=== PATIENT | female | born 1980 | race Caucasian/White ===

== ENCOUNTER → 2018-01-31 | Emergency (ER) | payer OTHER ==
[~2018-01-31] VITALS: Ht 152.4 cm; Wt 52.6 kg
[~2018-01-31] MED LIST: PANADOL EXTRA500 MG
== END | disposition home or self-care (01) ==
LOC: ER 15:47
DX: B34.9 Viral infection, unspecified (principal)

== ENCOUNTER 2018-10-30 11:07 | Emergency (ER) | payer OTHER ==
[~2018-10-30] VITALS: Ht 152.4 cm; Wt 5.4 kg
== END 2018-10-30 13:13 | disposition home or self-care (01) ==
LOC: ER 11:07
DX: J06.9 Acute upper respiratory infection, unspecified (principal)

== ENCOUNTER 2019-01-09 17:40 | Emergency (ER) | payer OTHER ==
[~2019-01-09] VITALS: Ht 152.4 cm; Wt 55.8 kg
== END 2019-01-09 21:28 | disposition home or self-care (01) ==
LOC: ER 17:40
DX: K52.9 Noninfective gastroenteritis and colitis, unspecified (principal)

== ENCOUNTER 2019-05-28 22:53 | Emergency (ER) | payer OTHER ==
[~2019-05-28] VITALS: Ht 152.4 cm; Wt 55.3 kg
[2019-05-29] MEDS ORDERED: MUPIROCIN22 GM TOP ×2 (00:42→00:43)
[2019-05-29] MEDS ORDERED: CECLOR500 MG PO (00:42)
== END 2019-05-29 01:07 ==
LOC: ER 22:53
DX: L08.89 Other specified local infections of the skin and subcutaneous tissue (principal)

== ENCOUNTER 2021-03-10 13:41 | Outpatient (CLI) | payer OTHER ==
[~2021-03-10 13:41] MED LIST changes: +CECLOR500 MG PO; +MUPIROCIN22 GM TOP
== END 2021-03-10 13:53 | disposition home or self-care (01) ==
LOC: RAD 13:41
PROVIDERS: ATTEND Specialist
DX: R07.89 Other chest pain (principal); H25.11 Age-related nuclear cataract, right eye

== ENCOUNTER 2022-06-03 11:24 | Emergency (ER) | payer OTHER ==
[~2022-06-03] VITALS: Ht 152.4 cm; Wt 54.9 kg
[2022-06-03] MEDS ORDERED: ZITHROMAX200 MG PO (13:26)
[2022-06-03] MEDS ORDERED: BENZONATATE200 M1 PO (13:26)
== END 2022-06-03 13:35 | disposition home or self-care (01) ==
LOC: ER 11:24
DX: B34.8 Other viral infections of unspecified site (principal); A49.3 Mycoplasma infection, unspecified site; Z20.828 Contact with and (suspected) exposure to other viral communicable diseases

== ENCOUNTER 2022-06-24 01:16 | Emergency (ER) | payer OTHER ==
[~2022-06-24] VITALS: Ht 152.4 cm; Wt 54.9 kg
[~2022-06-24 01:16] MED LIST changes: +BENZONATATE200 M1 PO; +ZITHROMAX200 MG PO
[2022-06-24] MEDS ORDERED: ZYNCOF 20-400120 ML PO (04:06)
[2022-06-24] MEDS ORDERED: MEDROL8 MG PO (04:06)
== END 2022-06-24 04:10 ==
LOC: ER 01:16
DX: J40 Bronchitis, not specified as acute or chronic (principal); R05.9 Cough, unspecified

== ENCOUNTER 2022-06-25 14:02 | Emergency (ER) | payer OTHER ==
[~2022-06-25] VITALS: Ht 152.4 cm; Wt 54.4 kg
[~2022-06-25 14:02] MED LIST changes: +MEDROL8 MG PO; +ZYNCOF 20-400120 ML PO
== END 2022-06-25 16:05 | disposition home or self-care (01) ==
LOC: ER 14:02
DX: M54.50 Low back pain, unspecified (principal)

== ENCOUNTER 2023-05-21 23:00 | Emergency (ER) | payer OTHER ==
[~2023-05-21] VITALS: Ht 152.4 cm; Wt 57.6 kg
[~2023-05-21 23:00] MED LIST changes: +TUSSI PRES-B L480 ML PO; +ZITHROMAX500 MG PO
== END 2023-05-22 06:38 | disposition home or self-care (01) ==
LOC: ER 23:00
DX: R10.32 Left lower quadrant pain (principal); R11.0 Nausea

== ENCOUNTER 2024-06-12 20:57 | Emergency (ER) | payer OTHER ==
[~2024-06-12] VITALS: Ht 152.4 cm; Wt 62.1 kg
[2024-06-12] MEDS ORDERED: KETOROLAC TROMETHAMINE 60 MG VIAL IM STA (22:34)
[2024-06-12] MEDS ORDERED: DEXAMETHASONE SODIUM PHOSPHATE 4 MG/ML VIAL IM STA (22:35)
[2024-06-12] MEDS ORDERED: KETOROLAC TROMETHAMINE 60 MG VIAL IM ONE (22:40)
[2024-06-12] MEDS ORDERED: DEXAMETHASONE SODIUM PHOSPHATE 4 MG/ML VIAL ONE (22:41)
== END 2024-06-12 22:49 | disposition home or self-care (01) ==
LOC: ER 20:58
DX: M25.562 Pain in left knee (principal)